=== PATIENT | male | born 1965 | race Caucasian/White ===

== ENCOUNTER 2018-08-01 11:00 | Outpatient (RCR) | payer OTHER | END 2018-08-01 12:00 | disposition home or self-care (01) | DRG 552 | LOC: PT 11:00 | PROVIDERS: ATTEND Internal Medicine | DX: M54.16 Radiculopathy, lumbar region (principal); M79.676 Pain in unspecified toe(s) ==

== ENCOUNTER 2019-06-04 10:44 | Observation (INO) | payer OTHER ==
--- NOTE | 2019-06-04 11:00 | NUR ---
PT TO ROOM VIA WC- ACCOMPANIED BY 2 GUARDS PT STATES HAVING DIZZINESS AND HEADACHE STARTING 05/31, HEADACHE RESOLVED THE NEXT DAY. PT STATES THAT HE IS STILL DIZZY - LIKE HE IS SPINNING. PT HAS DIFFICULTY WALKING IN STRAIGHT LINE. PT IS AOX4. STATES FEELING NAUSEATED BUT HAS NOT VOMITIED, DENIES ANY C/P, SOB
[2019-06-04] MEDS ORDERED: TRAMADOL HCL50 MG PO (11:02)
[2019-06-04] MEDS ORDERED: ATORVASTATIN CA10 MG PO (11:02)
[2019-06-04] MEDS ORDERED: OMEPRAZOLE10 MG PO (11:02)
[2019-06-04] MEDS ORDERED: INDOCIN25 MG PO (11:03)
[2019-06-04] MEDS ORDERED: NITROSTAT0.4 MG SL (11:03)
[2019-06-04 11:23] LABS: HEMATOCRIT 40.2 % (39.0-50.0); HEMOGLOBIN 13.5 g/dl (14.0-18.0); IMMATURE GRANULOCYTES 0.2 % (0.0-5.0); MEAN CELL VOLUME 92.8 fL CALC (80.0-100.0); MEAN CORPUSCULAR HGB 31.2 pG CALC (26.0-32.0); MEAN CORPUSCULAR HGB CONC 33.6 g/L CALC (32.0-36.0); NEUT# 5.39 thou/uL (1.82-7.42); RED BLOOD COUNT 4.33 mill/uL (4.70-6.10); RED CELL DISTRI WIDTH 12.8 % (11.5-15.5)
[2019-06-04 11:46] LABS: ANION GAP 12 (6-22 (CALC)); BUN 20 mg/dL (9-20); BUN/CREATININE RATIO 22 (12-20 (CALC)); CARBON DIOXIDE 31 mmol/l (22-30); CHLORIDE 101 mmol/l (95-108); CREATININE 0.9 mg/dL (0.7-1.3); GFR > 60 ML/MIN (>=60 (CALC)); GFR FOR AFR.AMER. > 60 ML/MIN (>=60 (CALC)); SODIUM 140 mmol/l (137-146)
--- NOTE | 2019-06-04 12:00 | NUR ---
PT RESTING ON STRETCHER, NO COMPLAINTS STATED AT THIS TIME.
--- NOTE | 2019-06-04 13:00 | NUR ---
PT RESTING ON STRETCHER, LEGS SHACKLED WITH GUARDS IN ROOM. STATES DIZZINESS IS ALITTLE BETTER
--- NOTE | 2019-06-04 13:41 | NUR ---
AT BEDSIDE TO [facility] ADMISSION
--- NOTE | 2019-06-04 14:33 | NUR ---
PT RESTING ON STRETCHER AWAITING MRI
--- NOTE | 2019-06-04 15:33 | NUR ---
PT RESTING ON STRETCHER, STATES THAT HE DOES NOT FEEL DIZZY LONG HE DOESNT MOVE.
--- NOTE | 2019-06-04 16:33 | NUR ---
PT ASLEEP ON STRETCHER, GUARDS CONTINUING AT [facility]
--- NOTE | 2019-06-04 17:33 | NUR ---
PT NOTIFIED OF ADDITIONAL WAIT FOR ADMISSION
--- NOTE | 2019-06-04 17:53 | NUR ---
REPORT CALLED TO LEONARD CAMACHO RN ACCEPTED PT
[2019-06-04 18:00] VITALS: BP 137/90
--- NOTE | 2019-06-04 18:03 | NUR ---
PT CAME FROM ER VIA STRETCHER WITH X2 GUARDS AT SIDE. PT AMBULATED TO BED. PT IS NOW SITTING IN THE SIDE OF THE BED. PT IS GOING TO TRY TO EAT HIS DINNER. PT DENIES PAIN. PT STATED HE FEELS DIZZY WHEN HE MOVES. SAFETY PRECAUTIONS REINFORCED. TELE IN PLACE READING SR 88 1AVB PER ED. CALL LIGHT IN REACH.
--- NOTE | 2019-06-04 20:15 | NUR ---
REPORT FROM RANJIT SEPULVEDA. PT RESTING IN BED. ALERT AND ORIENTED. X2 GUARDS PRESENT IN ROOM. PT SHACKLED BY RIGHT ANKLE TO BED. PT DENIES ANY PAIN OR DISCOMFORT. STATES ONLY DIZZY WHEN HE MOVES, NAUSEA ASSOCIATED WITH DIZZINESS. IV SITE APPEARS HEALTHY. AUGER OPERATOR IN PLACE. DISCUSSED POC. PT VERBALIZED UNDERSTANDING. CALL LIGHT WITHIN REACH. WILL CONTINUE TO [facility].
--- NOTE | 2019-06-04 23:15 | NUR ---
PT MEDICATED FOR HEADACHE WITH PO TYLENOL. NO APPARENT DISTRESS NOTED. CALL LIGHT WITHIN REACH. WILL CONTINUE TO MONITOR.
[2019-06-04 23:48] VITALS: BP 126/83
--- NOTE | 2019-06-05 03:24 | NUR ---
PT RESTING IN BED WITH EYES CLOSED. X2 GUARDS REMAIN IN ROOM. NO APPARENT DISTRESS NOTED. CALL LIGHT WITHIN REACH. WILL CONTINUE TO MONITOR.
[2019-06-05 03:43] VITALS: BP 128/82
[2019-06-05 07:21] VITALS: BP 134/74
--- NOTE | 2019-06-05 08:05 | NUR ---
ASSESSMENT DONE. PT IS A&O X3. PT STATED HE STARTING TO HAVE BACK PAIN. TELE IN PLACE. RESPS EVEN AND UNLABORED. IVF INFUSING WELL. X2 GUARDS IN ROOM. CALL LIGHT IN REACH.
[2019-06-05] MEDS ORDERED: ASPIRIN 8181 MG PO (08:59)
[2019-06-05] MEDS ORDERED: METOPROL TAR25 MG PO (09:00)
[2019-06-05] MEDS ORDERED: NAPROSYN250 MG PO (09:06)
[2019-06-05] MEDS ORDERED: VALPROIC ACD250 M1 PO ×3 (09:21→09:25)
[2019-06-05 10:40] VITALS: BP 132/88
[2019-06-05 10:45] VITALS: BP 128/85
[2019-06-05 10:50] VITALS: BP 124/86
[2019-06-05 10:59] LABS: HEMATOCRIT 40.8 % (39.0-50.0); MEAN CELL VOLUME 92.9 fL CALC (80.0-100.0); MEAN CORPUSCULAR HGB 31.9 pG CALC (26.0-32.0); MEAN CORPUSCULAR HGB CONC 34.3 g/L CALC (32.0-36.0); RED BLOOD COUNT 4.39 mill/uL (4.70-6.10); RED CELL DISTRI WIDTH 12.9 % (11.5-15.5)
[2019-06-05 11:25] VITALS: BP 132/88
[2019-06-05 11:25] LABS: ANION GAP 11 (6-22 (CALC)); BUN 15 mg/dL (9-20); BUN/CREATININE RATIO 17 (12-20 (CALC)); CARBON DIOXIDE 29 mmol/l (22-30); CHLORIDE 104 mmol/l (95-108); CREATININE 0.9 mg/dL (0.7-1.3); GFR > 60 ML/MIN (>=60 (CALC)); GFR FOR AFR.AMER. > 60 ML/MIN (>=60 (CALC)); MAGNESIUM 2.1 mg/dL (1.6-2.3); SODIUM 140 mmol/l (137-146)
--- NOTE | 2019-06-05 11:30 | NUR ---
PT IS RESTING IN BED WITH NO S/S OF DISTRESS NOTED. PT DENIES ANY NEEDS AT THIS TIME. CALL LIGHT IN REACH. X2 GUARDS IN ROOM. CALL LIGHT IN REACH.
--- NOTE | 2019-06-05 14:48 | NUR ---
Discharge instructions given. Patient verbalizes understanding of same. Discharged in stable condition via Wheelchair to *Other with staff. All belongings sent with pt. REPORT GIVEN TO OLIVA.
== END 2019-06-05 14:48 | disposition designated cancer center or children's hospital (05) | DRG 149 ==
LOC: ED 10:44 → ED-I 11:11 → ED 11:11 → ED-I 15:57 → ED 16:09 → MS2 16:10
PROVIDERS: Family Medicine; Nurse Practitioner Family; ADMIT Internal Medicine; ATTEND Internal Medicine
DX: R42 Dizziness and giddiness (principal); I10 Essential (primary) hypertension; G40.909 Epilepsy, unspecified, not intractable, without status epilepticus
CPT/HCPCS: G0378; Q9967